=== PATIENT | female | born 1985 | race Caucasian/White ===

== ENCOUNTER → 2018-03-26 09:02 | Outpatient (CLI) | payer OTHER, SELFPAY ==
[2018-03-26 10:00] LABS: Absolute Lymphocyte Count 1.95 X10^3/ul (0.83-4.51); Absolute Neutrophil Count 2.3 X10^3/uL (2.0-7.7); Basophil# 0.03 X10^3/uL; Basophil% 0.6 % (0-1); Eosinophil# 0.08 X10^3/uL; Eosinophils% 1.6 % (0-5); Hematocrit 38.7 % (37-47); Lymphocyte # 1.95 X10^3/ul (4.0); Mean Corp Hgb Conc 33.6 g/gl (32-36); Mean Corpuscular Hgb 29.3 pg (27.0-32.0); Mean Corpuscular Volume 87.4 fL (81-99); Mean Platelet Vol. 9.4 fl (6.2-12.0); Monocyte# 0.61 X10^3/uL; Monocyte% 12.2 % (0-10); Neutrophil # 2.33 X10^3/uL (2.7-7.7); Neutrophil % 46.6 % (47-70); Platelet Count 280 K/mm3 (150-450); RBC Distribution Width CV 12.5 % (11.6-14.6); RBC Distribution Width SD 39.6 fl (35.1-43.9); Red Blood Count 4.43 M/mm3 (4.2-5.4)
[2018-03-26 10:02] LABS: POSITIVE COUNT NO; POSITIVE DIFFERENTIAL NO; POSITIVE MORPHOLOGY NO
[2018-03-26 10:55] LABS: ALB/GLOB Ratio 0.9 RATIO (0.9-2.4); AST(SGOT) 13 U/L (15-37); Alanine Aminotransfer ALT/SGPT 19 U/L (13-56); Albumin, Serum 3.4 g/dL (3.2-5.0); Alkaline Phosphatase 40 U/L (45-117); Anion Gap 10 (5-15); BUN 13 mg/dL (7-18); BUN/Creat Ratio 14.5 RATIO (10-20); Calcium,Total 8.6 mg/dL (8.5-10.1); Chloride 109 mmol/L (98-107); EST Glomerular Filtration Rate 78 mL/min (>60); Est Glom Filt Rate - Afr Amer 95 mL/min (>60); Ferritin 7 ng/mL (8-252); Free T3 2.2 pg/mL (2.18-3.98); Globulin 3.7 g/dL (2.2-4.2); Glucose 86 mg/dL (74-106); Potassium 3.7 mmol/L (3.5-5.1); Protein, Total 7.1 g/dL (6.4-8.2); Sodium Level 141 mmol/L (136-145); T4 Free Direct 1.16 ng/dL (0.76-1.46); Thyroid Stim Hormone (TSH) 4.78 uIU/mL (0.358-3.74)
[2018-03-29 16:10] LABS: Endomysial Antibody IgA Negative (Negative); Immunoglobulin A 130 mg/dL (87-352)
[2018-03-30 08:46] LABS: Immunoglobulin E 8 IU/mL (0-100); t-Transglutaminase IgA <2 U/mL (0-3)
== END ==
PROVIDERS: Family Provider Family Medicine; PCP Family Medicine; Visit Provider Family Medicine
DX: E03.9 Hypothyroidism, unspecified (principal); R51 Headache; R10.13 Epigastric pain
CPT/HCPCS: 36415; 80053; 82728; 82784; 82785; 83516; 84439; 84443; 84481; 85025; 86255

== ENCOUNTER → 2019-02-09 | Outpatient (CLI) | payer OTHER, SELFPAY ==
[2019-02-09 18:12] LABS: Ferritin 55 ng/mL (8-252); Free T3 2.9 pg/mL (2.18-3.98); T4 Free Direct 1.24 ng/dL (0.76-1.46); Thyroid Stim Hormone (TSH) 1.14 uIU/mL (0.358-3.74)
== END | disposition home or self-care (01) ==
LOC: MFPLAB 16:44
PROVIDERS: Family Provider Family Medicine; PCP Family Medicine; Visit Provider Family Medicine
DX: E61.1 Iron deficiency (principal); E03.9 Hypothyroidism, unspecified
CPT/HCPCS: 36415; 82728; 84439; 84443; 84481

== ENCOUNTER 2019-03-02 05:19 | Observation (INO) | payer OTHER, SELFPAY ==
[2019-03-02] VITALS (13 sets, daily range): BP systolic 96–155; BP diastolic 64–93; PULSE 53–91; RESP 16–18; TEMP 36.4–37.1; O2SAT 96–100; BMI 22.0
--- NOTE | 2019-03-02 05:35 | CT_ITS ---
STUDY: CT ABDOMEN AND PELVIS WITHOUT CONTRAST REASON FOR EXAM: Female, 33 years old. Left-sided abdominal pain radiating into back, nausea, vomiting and elevated WBC. History of hypothyroid. RADIATION DOSAGE (If Supplied By Facility): CTDIvol = ( 7.15 ) mGy, DLP = ( 352.02 ) mGycm TECHNIQUE: Transaxial 2.5 mm images were obtained from the dome of the diaphragm to the symphysis pubis without oral contrast, and without intravenous contrast. Sagittal and coronal images were reconstructed. Individualized dose optimization techniques were used for this CT. COMPARISON: None. FINDINGS: The visualized lung bases are unremarkable. The visualized portions of the heart are within normal limits. Normal liver. Normal gallbladder and extrahepatic biliary system. Normal spleen. Normal pancreas. Normal bilateral adrenal glands. Normal right kidney. Normal left kidney. Megaly uro Normal visualized stomach. Normal small intestine. There is fecal stasis. Normal colon. The appendix is visualized and is distended with low attenuation, there is minimally indistinct contour and mild mesenteric fat stranding. There is no wall thickening. The appendix lumen measures 1 cm. The appendix courses retrocecally inferior to the right anterior lower abdomen superior to the inguinal fossa. Normal abdominal aorta. Normal inferior vena cava. Normal retroperitoneum. Normal urinary bladder. Normal visualized retroverted uterus and right ovary. Left ovary contains a large 4.1 x 3.2 x 3.5 cm cyst measuring 8 Hounsfield units. Normal abdominal wall. Normal osseous structures. CT/Abdomen/Pelvis without Cont IMPRESSION: Dilated appendix with minimal adjacent stranding. This may be an acute on chronic inflammation. Underlying small or early mucocele is not excluded. There is no significant wall thickening. Left ovarian cyst. There is no abscess, collection, perforation or obstruction. Fecal stasis. These findings were discussed on the telephone with Dr. Fairchild at 645 hrs. EST on 03/02/2019. Electronically Signed: Ludmila Irwin MD at 6:49 EDT , Service support ,
[2019-03-02] MEDS: Ketorolac 30 MG/ML Syringe IV (05:43)
[2019-03-02] MEDS: Morphine 4 MG/ML Syringe IV ×3 (05:44→12:14)
[2019-03-02] MEDS: Ondansetron 4 MG/2 ML Vial IV (05:44)
[2019-03-02] MEDS: 0.9% Normal Saline 1,000 ML 150 ML IV (05:45)
[2019-03-02 06:02] LABS: Absolute Lymphocyte Count 1.06 X10^3/ul (0.83-4.51); Absolute Neutrophil Count 14.3 X10^3/uL (2.0-7.7); Basophil# 0.02 X10^3/uL; Basophil% 0.1 % (0-1); Eosinophil# 0.01 X10^3/uL; Eosinophils% 0.1 % (0-5); Hematocrit 42.9 % (37-47); Hemoglobin 14.7 g/dl (12.0-15.0); Lymphocyte # 1.06 X10^3/ul (4.0); Lymphocyte % 6.3 % (19-41); Mean Corp Hgb Conc 34.3 g/gl (32-36); Mean Corpuscular Hgb 29.5 pg (27.0-32.0); Mean Corpuscular Volume 86.1 fL (81-99); Mean Platelet Vol. 9.4 fl (6.2-12.0); Monocyte# 1.37 X10^3/uL; Monocyte% 8.2 % (0-10); Neutrophil # 14.29 X10^3/uL (2.7-7.7); Platelet Count 287 K/mm3 (150-450); RBC Distribution Width CV 12.4 % (11.6-14.6); RBC Distribution Width SD 38.3 fl (35.1-43.9); Red Blood Count 4.98 M/mm3 (4.2-5.4); White Blood Count 16.8 K/mm3 (4.4-11.0)
[2019-03-02 06:05] LABS: POSITIVE COUNT NO; POSITIVE DIFFERENTIAL NO; POSITIVE MORPHOLOGY NO
[2019-03-02 06:14] LABS: Internal QC Validated? YES +Cl - CLEAR BKGD; Pregnancy, Serum, hCG Quali. NEGATIVE Negative
[2019-03-02 06:16] LABS: Anion Gap 13 (5-15); BUN 16 mg/dL (7-18); BUN/Creat Ratio 17.7 RATIO (10-20); Calcium,Total 9.4 mg/dL (8.5-10.1); Chloride 105 mmol/L (98-107); EST Glomerular Filtration Rate 77 mL/min (>60); Est Glom Filt Rate - Afr Amer 93 mL/min (>60); Estimated Creatinine Clearance 84.79 ml/min; Glucose 135 mg/dL (74-106); Potassium 3.5 mmol/L (3.5-5.1); Sodium Level 138 mmol/L (136-145)
[2019-03-02 06:56] LABS: Color, Urine Yellow (Yellow); Glucose, Dipstick Normal (Normal); Leukocyte Esterase-Dipstick 25 /ul (Negative); Nitrite-Dipstick Negative (Negative); Occult Blood-Urine 50 /ul (Negative); Protein-Dipstick 15 mg/dl (Negative); Urine Bilirubin Dipstick Negative (Negative); Urine Clarity Clear (Clear); Urine Urobilinogen Normal (Normal)
[2019-03-02 06:59] LABS: Ketone-Dipstick 150 mg/dl (Negative)
[2019-03-02 07:01] LABS: Bacteria RARE /hpf (None Seen); Red Blood Cells-Urine 0-5 SEEN /hpf (0-5); Squamous Epithelial Cells - UA 0-5 SEEN /hpf (5-10); White Blood Cells 0-5 SEEN /hpf (0-5)
[2019-03-02 07:02] LABS: Mucous, Urine 1+ /hpf (<or=2+)
--- NOTE | 2019-03-02 07:07 | US_ITS ---
STUDY: ULTRASOUND OF THE FEMALE PELVIS - COMPLETE REASON FOR EXAM: Female, 33 years old. Pelvic pain. LMP: February 15, 2019. TECHNIQUE: Transvaginal TECHNICAL QUALITY: Adequate. COMPARISON: Comparison is made with prior CT scan of the abdomen done earlier today. FINDINGS: The uterus is retroverted and is in a midline position. The uterus measures 7.3 cm x 4.3 cm x 3.5 cm. There is a Nabothian cyst of the cervix. The endometrium measures 5.4 mm in thickness, and is hyperechoic. There is no demonstrated endometrial mass. There is no demonstrated myometrial mass. I.U.D. - The patient does not have an I.U.D. The right ovary is visualized. The right ovary measures 2.6 cm x 1.6 cm x 1.9 cm. There is no right ovarian cyst or ovarian mass. There is no visualized right adnexal mass or complex lesion. There is normal arterial and normal venous vascularity. The left ovary is visualized. The left ovary measures 5.0 cm x 5.4 cm x 3.8 cm. There is a 4.3 cm x 4.1 cm x 3.7 cm simple cyst in the left ovary. There is no visualized left adnexal mass or complex lesion. There is normal arterial and normal venous vascularity. There is no fluid in the cul-de-sac. Polycystic ovary disease: No. US/Transvaginal Non- IMPRESSION: 4.3 cm x 4.1 cm x 3.7 cm cyst in the left ovary. Electronically Signed: Lance Norwood, at 9:00 EDT , Service support ,
--- NOTE | 2019-03-02 07:19 | ED.DCSUM_ITS ---
- ER Visit Summary Date of Service: 03/02/19 Chief Complaint: Abdominal pain History of Present Illness: The patient is a 33 F with abdominal pain that started at 10 PM last night. She points to bilateral lower quadrants and states that wraps around to both flank areas. Patient states the pain is sharp and cramping. She has had nausea and vomiting. She denies urinary symptoms. She has no history of ovarian cyst. She has had no prior abdominal surgeries. Last menstrual cycle was 3 weeks ago. Physical Examination: Vital signs gross unremarkable. Patient sitting upright in bed. She is very uncomfortable and has difficulty sitting still. Heart is regular rate and rhythm. Lung sounds are clear. Abdomen is soft with tenderness across the lower abdomen, both right and left quadrants. There is no guarding or rebound. Back examination does reveal tenderness on the CVA region bilaterally. Test Results: CBC was a white count of 16.8 with 85% neutrophils. Chemistry studies unremarkable. Urinalysis revealed 150 ketones with no sign of infection. test negative. CT flank was obtained that shows a dilated appendix with mild adjacent stranding. No wall thickening is noted. There is a 4 cm left ovarian cyst. Emergency Department Course and Treatment: Patient was given Toradol, morphine, Zofran, and IV fluids. On repeat evaluation she is resting more comfortably. I spoke with Dr. Girard, on-call for surgery. She reviewed the patient's images. Patient is given Zosyn and they will check surgery scheduled to see when they will take her to the OR today. 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 Ultrasound is currently ordered and will be signed out to oncoming physician. I spoke with Dr. Vann, and updated her on the patient's current condition. Dr. Vann will be called with the ultrasound report. Treatment Plan: [] Disposition: Admit Impression: 1. Appendicitis 2. Left ovarian cyst This note was generated with [employer]com[employer] software. It may contain incorrect words, spelling, and punctuation that were not noted in review of the chart prior to signing ED Disposition - Plan for ED Patient: Referrals: Orlando Fournier MD [Primary Care Provider] -
--- NOTE | 2019-03-02 09:16 | PCM.HP.STD ---
Problem List (1) Acute appendicitis Status: Acute History of Present Illness Date of Admission: 03/02/19 Chief Complaint: Acute appendicitis The patient is a 33 year old F who presented to the ED with 1 day history of abdominal pain. Patient noted the pain started last night around 10 pm bilateral lower quadrants. Patient notes she was doing house work outside all day yesterday and thought she over did it. She also noted a backache last night and bloating. She took anti-gas medication which did not help. Patient also was given ibuprofen for the pain which did not help to alleviate the pain. Patient stated the pain continued to get worse in the right lower quadrant which brought her to the ED. Patient states she was also nauseated and had 4 episodes of vomiting. She also noted chills however no fever. Patient also noted she had lack of appetite starting Thursday and wasn't feeling well. She thought maybe she was coming down with the flu. Patient noted yesterday her appetite improved. She denies previous abdominal surgeries. She notes extraction of wisdom teeth. She denies previous complications with anesthesia. She denies previous myocardial infraction, stroke and blood clots. She does have a permanent dental implant. 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 Denies: Fever HEENT: Denies: Head Aches, Sinus Congestion, Sinus Drainage Cardiovascular: Denies: Chest Pain, Palpitations Respiratory: Denies: Cough, Shortness of breath at rest, Sputum production Gastrointestinal: Reports: Abdominal Pain, Nausea, Vomiting. Denies: Constipation, Diarrhea Genitourinary: Denies: Dysuria Musculoskeletal: Denies: Joint Pain, Joint Tenderness Skin: Denies: Rash, Wounds Neurological: Denies: Numbness, Tingling, Focal weakness Psychiatric: Denies: Anxiety, Depression, Homicidal Ideations, Suicidal Ideations Hematologic/ Lymphatic: Denies: Easy Bruising, Easy Bleeding VTE Information - Inpt Only VTE Present on Admission: Yes VTE Mechan Device Prophylaxis: SCD's Patient Problems: Active and Suspected Problems Acute appendicitis (Acute) - Physical Exam General: Alert, Oriented x3, Cooperative HEENT: Atraumatic, PERRLA, EOMI, Normocephalic Neck: Supple, No JVD, Negative Carotid Bruits Lungs: Clear to auscultation, Normal air movement Cardiovascular: Regular rate, No murmurs Abdomen: Bowel Sounds Present, Soft, Non-Distended, Guarding, Tender - More tender in the right lower quadrant. Slightly tender in the left lower quadrant. Extremities: No edema, Capillary Refill Less than 3 Seconds Skin: No rashes, No breakdown Musculoskeletal: No Tenderness to Palpation of Joints or Extremities Neurological: Neuro grossly intact Psych/Mental Status: Normal Affect, Appropriate Vital Signs Temp Pulse Resp BP Pulse Ox 97.6 F L 75 18 155/93 H 100 03/02/19 05:21 03/02/19 05:21 03/02/19 07:19 03/02/19 05:21 03/02/19 05:21 Oxygen Delivery Method Room Air Weight: 136 lb 7.458 oz Body Mass Index (BMI) 22.0 Laboratory Tests Past 24 Hrs 03/02/19 03/02/19 03/02/19 05:30 05:30 05:30 WBC 16.8 H RBC 4.98 Hgb 14.7 Hct 42.9 MCV 86.1 MCH 29.5 MCHC 34.3 RDW 12.4 RDW Differential 38.3 Plt Count 287 MPV 9.4 Immature Gran % (Auto) 0.300 Neut % (Auto) 85.0 H Lymph % (Auto) 6.3 L Bond % (Auto) 8.2 Eos % (Auto) 0.1 Baso % (Auto) 0.1 Absolute Neuts (auto) 14.3 H Absolute Lymphs (auto) 1.06 Total Counted Not Reportable Sodium 138 Potassium 3.5 Chloride 105 Carbon Dioxide 20.0 L Anion Gap 13 BUN 16 Creatinine 0.90 Estim Creat Clear Calc 84.79 Est GFR (MDRD) Af Amer 93 Est GFR (MDRD) Non-Af 77 BUN/Creatinine Ratio 17.7 Glucose 135 H Calcium 9.4 Serum , Qual NEGATIVE Urine Color Urine Clarity Urine pH Ur Specific Lawrence Urine Protein Urine Glucose (UA) Urine Ketones Urine Occult Blood Urine Nitrite Urine Bilirubin Urine Urobilinogen Ur Leukocyte Esterase Urine RBC Urine WBC Ur Squamous Epith Cells Urine Bacteria Urine Mucus 03/02/19 06:45 WBC RBC Hgb Hct MCV MCH MCHC RDW RDW Differential Plt Count MPV Immature Gran % (Auto) Neut % (Auto) Lymph % (Auto) Bond % (Auto) Eos % (Auto) Baso % (Auto) Absolute Neuts (auto) Absolute Lymphs (auto) Total Counted Sodium Potassium Chloride Carbon Dioxide Anion Gap BUN Creatinine Estim Creat Clear Calc Est GFR (MDRD) Af Amer Est GFR (MDRD) Non-Af BUN/Creatinine Ratio Glucose Calcium Serum , Qual Urine Color Yellow Urine Clarity Clear Urine pH 5.0 Ur Specific Lawrence 1.030 Urine Protein 15 H Urine Glucose (UA) Normal Urine Ketones 150 H Urine Occult Blood 50 H Urine Nitrite Negative Urine Bilirubin Negative Urine Urobilinogen Normal Ur Leukocyte Esterase 25 H Urine RBC 0-5 SEEN Urine WBC 0-5 SEEN Ur Squamous Epith Cells 0-5 SEEN Urine Bacteria RARE Urine Mucus 1+ Assessment/Plan All Active Problems Acute appendicitis (Acute) I am seeing this patient in conjunction with Dr. Girard. Impression: Acute appendicitis. Left ovarian cyst. Plan: Patient was discussed with Dr. Girard. Dr. Girard will plan to perform a laparoscopic appendectomy. Procedure details, risks and benefits have been explained. Patient and her have had the opportunity to ask and have questions answered. Patient verbally understands and agrees to proceed with the proposed procedure. Keep patient NPO. Will proceed with surgery approximately 1400 pm. Thank you for allowing us to participate in this patient's care. Code Visit Office Visits / Consults: [id number] IP Consult L3
--- NOTE | 2019-03-02 12:32 | PCM.HP.OB ---
- Problem List (1) Lower abdominal pain Status: Acute (2) Acute appendicitis Status: Acute History Date of Admission: 03/02/19 History of this : This is a 33 year-old, who is admitted with acute appendicitis and a left ovarian cyst. She has generally not been feeling well with decreased appetite. Began having bilateral lower abd pain worse in RLQ. Associated symptoms: nausea, vomiting, chills. She denies h/o ovarian cysts. Has had 1 . Is currently on control pills. Medical History: Medical History (Last Updated 03/02/19 @ 12:35 by Lara Vann DO) Hypothyroidism E03.9 Allergies No Known Allergies Allergy (Verified 03/02/19 05:23) Home Medications: Home Medications Ethinyl Estradiol/Drospirenone [Gianvi 3 mg-0.02 mg Tablet] 1 each PO DAILY 03/02/19 Levothyroxine Sodium [Synthroid] 112 mcg PO DAILY 03/02/19 Smoking Status: Never smoker History Past Pregnancies: Past Pregnancies Delivery Date Name GA/Weeks Outcome Route Weight Gender Labor Length Anesthesia Delivery Location Provider FOB Review of Systems Constitutional: Reports: Chills, Malaise Gastrointestinal: Reports: Abdominal Pain, Nausea, Vomiting Gynecological: Denies: Excessively long or heavy periods, Vaginal bleeding Physical Exam Vitals: Vital Signs Temp Pulse Resp BP Pulse Ox 98.6 F 53 L 18 96/74 100 03/02/19 12:24 03/02/19 12:24 03/02/19 12:24 03/02/19 12:24 03/02/19 12:24 General: Alert, No apparent distress HEENT: Atraumatic Lungs: - - No increased resp effort Abdomen: Non-Distended Extremities:: No edema Neurological: Neuro grossly intact Assessment/Plan All Active Problems Acute appendicitis (Acute) Lower abdominal pain (Acute) This is a 33 year-old, admitted with acute appendicitis and an incidental finding of a left ovarian cyst. - Pelvic US reviewed and left ovarian cyst is ~4cm in size and simple appearing. Based on images and pt's hx this does not appear to be a TOA. Discussed with pt this cyst is benign appearing, and is likely to resolve on it's own. Would not recommend cyst removal at the time of her appendectomy. Did discuss that it is possible that the cyst grows in size over time, and it is still possible that she could need surgery in the future to remove the cyst but that this is unlikely given the cyst size and characteristics. Discussed signs/symptoms of cyst rupture or torsion. All questions answered. Pt is agreeable to follow up as an outpatient for the cyst, and is agreeable to not remove the cyst at the time of her appendectomy. RN will call pt next week to assist with outpatient follow up. Discussed pt with Dr. Ocampo as well for a second opinion.
--- NOTE | 2019-03-02 13:30 | APP_PTH ---
PATIENT: OPAL FOURNIER LOC: MS2 U#:[id number] AGE/SX: 33/F [place] [facility] [place]: Dr. Natalya Girard MD : 1985 BED: 1 DIS: 03/03/2019 SPEC #: [id number] RECD: 03/02/19 16:45 STATUS: ISAAC REQ #: [id number] JIM: 03/02/19 13:[address]: Natalya Girard DEPT: SURGICAL PATHOLOGY RECD BY: Enio Gregory ENTERED: 03/03/19 10:59 SP TYPE: APPENDIX OTHR DR: Dr. Orlando Fournier MD Tissues: Appendix, NOS Procedures: Surgery Specimen Level III HEADER OPERATION: Laparoscopic appendectomy PRE-OP DIAGNOSIS: Acute appendicitis TISSUE SUBMITTED: Appendix MICROSCOPIC DIAGNOSIS Appendix: Acute appendicitis and periappendicitis. SJ:enedelia 03/04/19 MICROSCOPIC DESCRIPTION Slides are reviewed. GROSS DESCRIPTION Received is one container labeled with the patient's name and designated appendix. The specimen consists of an appendix measuring 7 cm in length and up to 1.5 cm in diameter. The serosal surface is congested. No obvious perforation is identified. The attached periappendiceal adipose tissue measures up to 1 cm in width. The lumen contains purulent fecal material. No fecalith is identified. Car Driver sections are submitted in one cassette. / SJ:enedelia 03/03/19 TC:2 CPT: 26294
[2019-03-02] MEDS: Bupiv/Epi 0.5% Mpf 30 ML Vial (15:27)
--- NOTE | 2019-03-02 15:33 | PCM.OPRPT ---
Report of Operation Date of Procedure: 03/02/19 Pre-Operative Diagnosis: Acute appendicitis, simple left ovarian cyst Post-Operative Diagnosis: Same Surgery/Procedure Performed:: Laparoscopic appendectomy Type of Anesthesia:: General/Supplemental Anesthesiologist: Lang Cotto Special Medications: Zosyn 3.375 g IV x1 patient previously also got Zosyn in the ER for acute appendicitis Specimen's removed: Appendix Estimated Blood Loss (mL): 10 cc Fluids Replaced: 800 Description of Procedure: Indications: 33-year-old female presented to the ER with new bilateral lower quadrant pain last night. On workup she was found to have acute appendicitis on CT and a leukocytosis of 16. Patient was started on antibiotics in the ER for acute appendicitis-Zosyn 4.5 g IV x1 Description of the procedure: The patient was placed on operating table in supine position. General anesthesia was induced. A timeout was completed verifying correct patient, procedure, position and special equipment prior to beginning procedure. A Montgomery catheter was placed. Abdomen was prepped and draped in usual sterile fashion. Incision was made in the natural skin line below the umbilicus with a 15 blade scalpel. The fascia was elevated and incised. Entry into the peritoneum was confirmed visually and no bowel was noted in the vicinity of the incision. The Estrada trocar was placed under direct vision. Abdomen insufflated with a pressure of 12-15 mmHg. Patient tolerated insertion well. The scope was inserted and the abdomen inspected. No injuries from initial trocar placement were noted. Minimal amount of fluid was seen in the right lower quadrant. An direct visualization 2 -5 mm trocars were placed one above the symphysis pubis and below the hairline and one in the left lower quadrant lateral to the rectus muscle. Care is taken to avoid injury to the bladder and inferior epigastric vessels. The table was placed in Trendelenburg position with the right side elevated. The appendix was grasped with atraumatic grasper and elevated. It was noted to be inflamed. A window was developed in the mesoappendix at the point between the base of the appendix and the cecum. An endoscopic 45 mm linear cutting stapler blue load was then used to divide and staple the base of the appendix. There was a little bit of oozing at the staple line 5 mm clips were placed. Hemostasis was achieved. Pain seal was used to divide the mesoappendix. The appendix was withdrawn into the Estrada trocar after being placed endoscopically retrieval bag. Appendix was sent to pathology. The appendiceal stump was then irrigated and hemostasis was assured. Fluid was suctioned left and right ovary were seen and pictures were taken, no signs of any ovarian torsion. Secondary trochars were removed under direct visualization. No bleeding was noted trocar sites. The laparoscope withdrawn and the umbilical trocar removed. The abdomen was allowed to collapse. Local anesthesia of 15 mL of 0.5% Marcaine was used at the incision sites. The umbilical trocar site was closed with the [id number] 0 Vicryl suture. The skin was closed up to clear sutures of 4-0 Monocryl and Steri-Strips. The patient was extubated. The patient tolerated the procedure well and was taken to the postanesthesia care unit in satisfactory condition. - Complications None
[2019-03-02] MEDS: Ibuprofen 200 MG Tablet PO (22:00)
[2019-03-03 04:00] VITALS: BP 92/60; PULSE 80; RESP 16; TEMP 36.6; O2SAT 97
[2019-03-03] MEDS: Ibuprofen 200 MG Tablet PO (04:13)
[2019-03-03 04:18] VITALS: BP 92/48
[2019-03-03] MEDS: Levothyroxine 112 MCG Tablet PO (06:34)
[2019-03-03] MEDS: HYDROcodone Bitartrate/Apap 5/325 Tablet PO (07:51)
--- NOTE | 2019-03-03 08:26 | PCM.DC.APPY ---
Discharge Diet: Light diet - advance as tolerated Discharge Activity: May not drive while taking narcotic pain medications. May shower in (days): 0 - Okay to shower tonight Ice area for (Minutes): 20 - PRN Lifting Restrictions: No lifting greater than 20 lbs x 3 to 4 wks, no strenuous exercise for 6 wk Call your doctor if your incision/area has: Continuous Slow Oozing, Sudden Increased Bleeding, Increased Pain/ Swelling, Increased Redness, Foul Smelling Discharge, Swelling at the incision site Call your doctor if you observe: Fever of 101 or Higher Remove Dressing in (days):: 1 - Okay to remove op sites tonight, Steri-Strips stay on until they fall off or okay to remove in 10 days Additional Instructions: Okay to take ibuprofen 400-600 mg PO q6hr PRN along with the Sunflower. Avoid Tylenol since there is already Tylenol in the Sunflower. Take all pain meds with food. Sunflower can cause constipation recommend taking daily stool softener (i.e. Colace/docusate) while taking the pain meds. Recommend starting some MiraLAX tonight 1 dose and if no bowel movement tomorrow may take a couple doses. If still no bowel movement the following day recommend taking magnesium citrate half the bottle and waiting 4-6 hours if still no results take the other half the bottle. Medications to take at Discharge Ethinyl Estradiol/Drospirenone [Gianvi 3 mg-0.02 mg Tablet] 1 each PO DAILY 03/02/19 Hydrocodone Bitart/Apap 5-325 [Sunflower 5MG-325MG] 1 - 2 tablet PO Q6H PRN PRN 4 Days #25 tablet 03/02/19 Levothyroxine Sodium [Synthroid] 112 mcg PO DAILY 03/02/19 Allergies/Adverse Reactions: Allergies No Known Allergies Allergy (Verified 03/02/19 05:23) The following prescriptions were given: Hydrocodone Bitart/Apap 5-325 [Sunflower 5MG-325MG] 1 - 2 tablet PO Q6H PRN PRN 4 Days #25 tablet PRN Reason: Pain Primary Care Physician: Orlando Fournier MD [Primary Care Provider] - Test Results: Test results from this visit will be discussed in further detail at your follow-up appointment, if applicable. Please Follow Up With: Natalya Girard MD - after 5:00PM/ on the weekends call [phone] with any concerns When: Call the office for follow-up appointment in 2 weeks [phone] Proposed Discharge Date: 03/03/19
--- NOTE | 2019-03-03 08:29 | DCINST_ITS ---
Discharge Diet: Light diet - advance as tolerated Discharge Activity: May not drive while taking narcotic pain medications. May shower in (days): 0 - Okay to shower tonight Ice area for (Minutes): 20 - PRN Lifting Restrictions: No lifting greater than 20 lbs x 3 to 4 wks, no strenuous exercise for 6 wk Call your doctor if your incision/area has: Continuous Slow Oozing, Sudden Increased Bleeding, Increased Pain/ Swelling, Increased Redness, Foul Smelling Discharge, Swelling at the incision site Call your doctor if you observe: Fever of 101 or Higher Remove Dressing in (days):: 1 - Okay to remove op sites tonight, Steri-Strips stay on until they fall off or okay to remove in 10 days Additional Instructions: Okay to take ibuprofen 400-600 mg PO q6hr PRN along with the Barlow. Avoid Tylenol since there is already Tylenol in the Barlow. Take all pain meds with food. Barlow can cause constipation recommend taking daily stool softener (i.e. Colace/docusate) while taking the pain meds. Recommend starting some MiraLAX tonight 1 dose and if no bowel movement tomorrow may take a couple doses. If still no bowel movement the following day recommend taking magnesium citrate half the bottle and waiting 4-6 hours if still no results take the other half the bottle. Medications to take at Discharge Ethinyl Estradiol/Drospirenone [Gianvi 3 mg-0.02 mg Tablet] 1 each PO DAILY 03/02/19 Hydrocodone Bitart/Apap 5-325 [Barlow 5MG-325MG] 1 - 2 tablet PO Q6H PRN PRN 4 Days #25 tablet 03/02/19 Levothyroxine Sodium [Synthroid] 112 mcg PO DAILY 03/02/19 Allergies/Adverse Reactions: Allergies No Known Allergies Allergy (Verified 03/02/19 05:23) The following prescriptions were given: Hydrocodone Bitart/Apap 5-325 [Barlow 5MG-325MG] 1 - 2 tablet PO Q6H PRN PRN 4 Days #25 tablet PRN Reason: Pain Primary Care Physician: Orlando Fournier MD [Primary Care Provider] - Test Results: Test results from this visit will be discussed in further detail at your follow- up appointment, if applicable. Please Follow Up With: Natalya Girard MD - after 5:00PM/ on the weekends call [phone] with any concerns When: Call the office for follow-up appointment in 2 weeks [phone] Proposed Discharge Date: 03/03/19
--- NOTE | 2019-03-03 08:30 | PN.SURG_ITS ---
Patient Problems: Active and Suspected Problems (Last Updated 03/02/19 @ 12:35 by Lara Vann DO) Acute appendicitis (Acute) Lower abdominal pain (Acute) Subjective: Patient states her previous lower abdominal pain is gone after surgery. She has some soreness at incisions. Patient has tolerated regular diet this morning. Has been ambulating. - Physical Exam General: Alert, Oriented x3, Cooperative, No apparent distress HEENT: Atraumatic Lungs: Normal air movement Cardiovascular: Regular rate Abdomen: Soft, Non-Distended, Tender - Near incisions, clean dry and intact, no peritoneal signs Extremities: No clubbing, No cyanosis, No edema Vital Signs Temp Pulse Resp BP Pulse Ox 97.9 F 80 16 92/48 L 97 03/03/19 04:00 03/03/19 04:00 03/03/19 04:00 03/03/19 04:18 03/03/19 04:00 Oxygen Delivery Method Room Air Weight: 136 lb 7.458 oz Body Mass Index (BMI) 22.0 Intake and Output for Last 24 Hours 03/01/19 03/02/19 03/03/19 23:59 23:59 23:59 Intake Total 2150 / 2150 1622 / 1622 Output Total 150 / 150 Balance 1999 1622 / 1622 Medical Necessity - Tobacco Use Smoking Status: Never smoker Assessment/Plan All Active Problems (Last Updated 03/02/19 @ 12:35 by Lara Vann DO) Acute appendicitis (Acute) Lower abdominal pain (Acute) 33-year-old female status post lap scopic appendectomy postop day 1 1. Patient tolerating regular diet, ambulating, pain controlled okay to be DC'd home. Natalya Girard M.D. Pager: [phone] [facility] [address] [place] [address], [facility], [address] [place] [address] Office: [phone]
[2019-03-03 09:48] VITALS: BP 102/60; PULSE 77; RESP 16; TEMP 36.4; O2SAT 99
== END 2019-03-03 10:00 | disposition home or self-care (01) ==
LOC: ED 06:09 → PCU 07:21 → MS2 08:49
PROVIDERS: Admitting Provider Surgery; Emergency Provider Emergency Medicine; Family Provider Family Medicine; PCP Family Medicine; Visit Provider Surgery
PROC: 0DTJ4ZZ Resection of Appendix, Percutaneous Endoscopic Approach (ICD-10-PCS; CPT 44970; principal; 2019-03-02 13:15)
DX: K35.80 Unspecified acute appendicitis (principal); N83.292 Other ovarian cyst, left side; E03.9 Hypothyroidism, unspecified; Z79.899 Other long term (current) drug therapy
CPT/HCPCS: 44970; 36415; 74176; 76830; 80048; 81001; 84703; 85025; 88304; 96361; 96365; 96375; 96376; 99218; 99285; J7030; J7050; J7120; A4216; C1760; G0378; J2405

== ENCOUNTER → 2020-09-04 07:14 | Outpatient (CLI) | payer OTHER, SELFPAY ==
[2019-03-16 13:02] VITALS: BMI 22.0
[2020-09-04 10:03] LABS: Hemoglobin 13.3 g/dL (12.0-15.0)
[2020-09-04 10:29] LABS: Cholesterol 234 mg/dL (200); Creatinine, Serum 0.93 mg/dL (0.55-1.02); EST Glomerular Filtration Rate 74 mL/min (>60); Est Glom Filt Rate - Afr Amer 90 mL/min (>60); High Density Lipoprotein 93 mg/dL; T4 Free Direct 1.05 ng/dL (0.76-1.46); Thyroid Stim Hormone (TSH) 7.45 uIU/mL (0.358-3.74); Triglycerides 82 mg/dL; Very Low Density Lipoprotein 16 mg/dL (5-40)
== END ==
PROVIDERS: PCP Family Medicine; Referring Provider Family Medicine; Visit Provider Family Medicine
DX: E03.9 Hypothyroidism, unspecified (principal); Z13.220 Encounter for screening for lipoid disorders
CPT/HCPCS: 36415; 80061; 82565; 84439; 84443; 85018

== ENCOUNTER → 2021-04-09 14:27 | Outpatient (CLI) | payer OTHER, SELFPAY ==
[2019-03-16 13:02] VITALS: BMI 22.0
[2021-04-09 17:51] LABS: Absolute Lymphocyte Count 2.01 X10^3/uL (0.83-4.51); Absolute Neutrophil Count 2.4 X10^3/uL (2.0-7.7); Basophil# 0.05 X10^3/uL; Eosinophil# 0.02 X10^3/uL; Eosinophils% 0.4 % (0-5); Hemoglobin 13.1 g/dL (12.0-15.0); Lymphocyte # 2.01 X10^3/ul (0.83-4.51); Lymphocyte % 38.5 % (19-41); Mean Corp Hgb Conc 32.8 g/dL (32-36); Mean Corpuscular Hgb 29.6 pg (27.0-32.0); Mean Corpuscular Volume 90.3 fL (81-99); Mean Platelet Vol. 9.6 fl (6.2-12.0); Monocyte# 0.68 X10^3/uL; NRBC Flagged by Analyzer 0 % (0-5); Neutrophil # 2.44 X10^3/uL (2.7-7.7); Neutrophil % 46.7 % (47-70); Platelet Count 297 K/mm3 (150-450); RBC Distribution Width CV 12.4 % (11.6-14.6); RBC Distribution Width SD 41.3 fl (35.1-43.9); Red Blood Count 4.43 M/mm3 (4.2-5.4); White Blood Count 5.2 K/mm3 (4.4-11.0)
[2021-04-09 18:04] LABS: Vitamin B12 239 pg/mL (211-911)
[2021-04-09 18:06] LABS: Erythrocyte Sedimentation Rate 4 mm/hr (0-30)
[2021-04-09 18:44] LABS: AST(SGOT) 19 U/L (15-37); Alanine Aminotransfer ALT/SGPT 32 U/L (13-56); Albumin, Serum 3.7 g/dL (3.2-5.0); Alkaline Phosphatase 51 U/L (45-117); Anion Gap 10 (5-15); BUN 19 mg/dL (7-18); BUN/Creat Ratio 21.6 RATIO (10-20); CRP < 2.90 mg/L (0.0-3.0); Calcium,Total 8.7 mg/dL (8.5-10.1); Chloride 105 mmol/L (98-107); Creatinine, Serum 0.88 mg/dL (0.55-1.02); EST Glomerular Filtration Rate 79 mL/min (>60); Est Glom Filt Rate - Afr Amer 95 mL/min (>60); Ferritin 65 ng/mL (8-252); Globulin 3.7 g/dL (2.2-4.2); Glucose 90 mg/dL (74-106); Potassium 3.8 mmol/L (3.5-5.1); Protein, Total 7.4 g/dL (6.4-8.2); Sodium Level 138 mmol/L (136-145); T4 Free Direct 1.33 ng/dL (0.76-1.46); Thyroid Stim Hormone (TSH) 1.45 uIU/mL (0.358-3.74)
[2021-04-12 12:06] LABS: ANTINUCLEAR ANTIBODIES DIRECT Negative (Negative)
== END ==
PROVIDERS: PCP Family Medicine; Visit Provider Family Medicine
DX: E03.9 Hypothyroidism, unspecified (principal); E61.1 Iron deficiency; R53.81 Other malaise
CPT/HCPCS: 36415; 80053; 82607; 82728; 82746; 83921; 84439; 84443; 85025; 85652; 86038; 86140

== ENCOUNTER → 2021-05-06 12:14 | Outpatient (CLI) | payer OTHER, SELFPAY ==
[2019-03-16 13:02] VITALS: BMI 22.0
[2021-05-06 15:35] LABS: Estradiol < 11.0 pg/mL; Follicle Stimulating Hormone 0.7 mIU/mL; Luteinizing Hormone < 0.2 mIU/mL
== END ==
PROVIDERS: PCP Family Medicine; Referring Provider Family Medicine; Visit Provider Family Medicine
DX: R45.86 Emotional lability (principal)
CPT/HCPCS: 36415; 82670; 83001; 83002; 84403

== ENCOUNTER → 2023-07-17 | Outpatient (CLI) | payer OTHER, SELFPAY ==
[2023-07-17 17:40] LABS: Absolute Lymphocyte Count 1.81 X10^3/uL (0.83-4.51); Absolute Neutrophil Count 2.7 X10^3/uL (2.0-7.7); Basophil# 0.05 X10^3/uL; Eosinophil# 0.05 X10^3/uL; Hematocrit 39.8 % (37-47); Hemoglobin 12.8 g/dL (12.0-15.0); Lymphocyte # 1.81 X10^3/ul (0.83-4.51); Lymphocyte % 34.7 % (19-41); Mean Corp Hgb Conc 32.2 g/dL (32-36); Mean Corpuscular Hgb 29.3 pg (27.0-32.0); Mean Corpuscular Volume 91.1 fL (81-99); Mean Platelet Vol. 9.4 fl (6.2-12.0); Monocyte# 0.61 X10^3/uL; Monocyte% 11.7 % (0-10); NRBC Flagged by Analyzer 0 % (0-5); Neutrophil # 2.68 X10^3/uL (2.7-7.7); Neutrophil % 51.4 % (47-70); Platelet Count 341 K/mm3 (150-450); RBC Distribution Width CV 12.3 % (11.6-14.6); RBC Distribution Width SD 40.6 fl (35.1-43.9); Red Blood Count 4.37 M/mm3 (4.2-5.4); White Blood Count 5.2 K/mm3 (4.4-11.0)
[2023-07-17 18:27] LABS: AST(SGOT) 12 U/L (15-37); Alanine Aminotransfer ALT/SGPT 23 U/L (13-56); Albumin, Serum 3.6 g/dL (3.2-5.0); Alkaline Phosphatase 46 U/L (45-117); Anion Gap 1 (5-15); BUN 19 mg/dL (7-18); BUN/Creat Ratio 21.1 RATIO (10-20); Calcium,Total 8.9 mg/dL (8.5-10.1); Chloride 108 mmol/L (98-107); Cholesterol 211 mg/dL (200); EST Glomerular Filtration Rate 75 mL/min (>60); Est Glom Filt Rate - Afr Amer 91 mL/min (>60); Globulin 3.7 g/dL (2.2-4.2); Glucose 91 mg/dL (74-106); High Density Lipoprotein 87 mg/dL; Potassium 3.6 mmol/L (3.5-5.1); Protein, Total 7.3 g/dL (6.4-8.2); Sodium Level 133 mmol/L (136-145); Thyroid Stim Hormone (TSH) 5.41 uIU/mL (0.358-3.74); Triglycerides 62 mg/dL; Very Low Density Lipoprotein 12 mg/dL (5-40)
== END | disposition home or self-care (01) ==
LOC: MTLAB 15:57
PROVIDERS: PCP Family Medicine; Referring Provider Family Medicine; Visit Provider Family Medicine
DX: Z00.00 Encounter for general adult medical examination without abnormal findings (principal); E03.9 Hypothyroidism, unspecified; Z13.220 Encounter for screening for lipoid disorders
CPT/HCPCS: 36415; 80053; 80061; 84439; 84443; 85025

== ENCOUNTER 2024-11-18 14:12 | Emergency (ER) | payer OTHER, SELFPAY ==
[2024-11-18 14:13] VITALS: BP 175/92; PULSE 113; RESP 18; TEMP 36.2; O2SAT 95; BMI 24.8
--- NOTE | 2024-11-18 14:52 | EDS_ITS ---
HPI HPI - GI History of Present Illness Chief Complaint: Abd Pain Abdominal Pain/Flank Pain Onset: Today Context: Sudden Onset Timing: Continuous Quality: Stabbing Location: RUQ Worsened by: Movement (Sitting upright) Relieved by: Nothing Nausea/Vomiting/Emesis GI Symptom: Negative for Nausea or Vomiting Diarrhea/Melena/Hematochezia GI Symptom: Negative for Diarrhea, Melena or Hematochezia Associated Symptoms Associated Symptoms: Negative for Dysuria, Frequency or Hematuria Narrative Narrative: Patient presents with abdominal pain that began today. Patient states that the pain rather suddenly. Patient describes the pain as stabbing. Patient states her pain started approximately 1:10 PM today. Patient states her last meal was breakfast at 7 AM. Patient states she had a fried egg sandwich at that time. Patient states her pain is localized to the right upper abdomen. Patient states it is worse with movement and sitting. Patient denies any nausea vomiting or diarrhea. Patient denies any urinary complaints. Patient states her last menstrual period was approximately 2 weeks ago. [facility] Medical History (Updated 11/18/24 @ 16:[address] Orlando Rankin DO) Hypothyroidism Home Medications ?Medication ?Instructions ?Recorded ?Last Taken ?Type drospirenone 3 mg-ethinyl 1 ea PO DAILY 03/02/19 Unkno wn History estradiol 0.02 mg tablet (Gianvi (28)) levothyroxine 112 mcg tablet 112 mcg PO DAILY 03/02/19 Unknown History (Synthroid) buspirone 15 mg tablet 15 mg 11/18/24 Unknown Histo ry hydrocodone-acetaminophen 5-325mg 1 tab PO Q6H PRN PRN Pain 3 days 11/18/24 Unknown Rx 5mg-325mg #10 TABLETS ondansetron 4 mg disintegrating 4 mg PO Q8H PRN PRN Na usea #10 tabs 11/18/24 Unknown Rx tablet Allergy/AdvReac Type Severity Reaction Status Date / Time No Known Allergies Allergy Verified 03/02/19 05:23 Surgical History (Updated 11/18/24 @ 14:[address] Orlando Rankin DO) Hx of appendectomy Social History Smoking Status: Never smoker ROS ROS ED Constitutional Constitutional ED: Denies chills or fever(s) Eyes Eyes: Denies blurry vision or change in vision ENT ENT ED: Denies rhinorrhea or sore throat Cardiovascular Cardiovascular: Denies chest pain or palpitations Respiratory/Chest Respiratory/Chest: Denies cough or dyspnea Gastrointestinal Gastrointestinal: Reports abdominal pain; Denies nausea or vomiting Genitourinary Genitourinary ED: Denies dysuria or hematuria Musculoskeletal Musculoskeletal: Reports back pain; Denies neck pain Integumentary Denies abscess or rash Neurologic Neurologic: Denies headache(s) or weakness Allergic/Immunologic Allergic/Immunologic ED: Denies mouth swelling or urticaria EXAM Physical Exam Const Vital Signs: 11/18/24 14:13 Temperature 97.1 F L Temperature Source Temporal Pulse Rate 113 H Respiratory Rate 18 Blood Pressure 175/92 H Blood Pressure Mean 119 Pulse Ox 95 Oxygen Delivery Method Room Air Positive well nourished and well developed General Appearance ED: well developed and NAD HEENT Reports moist mucous membranes Neck supple and no JVD Resp normal respiratory effort and clear to auscultation bilaterally Cardio regular rate and regular rhythm GI non-distended Palpation: soft and tender RUQ; Negative for guarding or rebound tenderness present Neuro CN's II-XII intact bilaterally, moves all extremities and no sensory deficits noted Sensorium / Orientation: alert Motor Exam: strength 5/5 throughout Psych mental status grossly normal and thought process normal MDM MDM MDM Narrative Medical decision making narrative: Differential diagnosis includes cholecystitis, cholelithiasis, pancreatitis, pyelonephritis, colitis, peptic ulcer disease, duodenal ulcer, and viral illness. CBC will be obtained to assess for leukocytosis and anemia. Comprehensive metabolic profile will be obtained to assess for hepatic function, renal function, and electrolyte abnormality. Lipase will be obtained to assess for pancreatitis. Urinalysis will be obtained to assess for urinary tract infection and hematuria. Serum hCG will be obtained to assess for . Right upper quadrant ultrasound will be obtained to assess for cholecystitis and cholelithiasis. Lab Data Attestation: I reviewed the patient's lab results. Lab results narrative: CBC was reviewed and was within normal limits. Comprehensive metabolic profile was reviewed and was within normal limits. Lipase was reviewed and was normal. Serum hCG was reviewed and was negative. Urinalysis with reviewed. Leukocyte esterase was 500. There are 10-25 white blood cells but 10-25 squamous epithelial cells. There is 3+ bacteria. Labs: Laboratory Results - last 24 hr 11/18/24 11/18/24 14:50 15:11 WBC 5.6 RBC 4.29 Hgb 12.6 Hct 37.4 MCV 87.2 MCH 29.4 MCHC 33.7 RDW Std Deviation 39.3 RDW Coeff of [place] 12.3 Plt Count 324 MPV 8.9 Immature Gran % (Auto) 0.200 Neut % (Auto) 53.8 Lymph % (Auto) 33.5 [place] % (Auto) 11.3 H Eos % (Auto) 0.5 Baso % (Auto) 0.7 Absolute Neuts (auto) 3.0 Absolute Lymphs (auto) 1.89 Nucleated RBC % 0 Sodium 134 Potassium 3.4 Chloride Direct 101 Carbon Dioxide 20.3 L Anion Gap 13 BUN 15 Creatinine 0.79 Estim Creat Clear Calc 92.16 Est GFR (MDRD) Non-Af 100 BUN/Creatinine Ratio 18.6 Glucose 101 H Calcium 9.2 Total Bilirubin 0.26 AST 18 ALT 14 Alkaline Phosphatase 46 Total Protein 6.9 Albumin 4.2 Globulin 2.6 Albumin/Globulin Ratio 1.6 Lipase 32 Serum , Qual NEGATIVE Urine Color Yellow Urine Clarity Sl. Cloudy Urine pH 6.0 Ur Specific [place] 1.025 Urine Protein 15 H Urine Glucose (UA) Normal Urine Ketones 5 H Urine Occult Blood 25 H Urine Nitrite Negative Urine Bilirubin Negative Urine Urobilinogen Normal Ur Leukocyte Esterase 500 H Urine RBC 0-5 SEEN Urine WBC 10-25 SEEN Ur Squamous Epith Cells 10-25 SEEN Urine Bacteria 3+ Urine Mucus 0 SEEN Radiography Diagnostic Testing: Clinical Impression(s) from Imaging Studies Abdomen Ultrasound 11/18/24 14:53 IMPRESSION: Findings suggestive of a 1.1 cm x 1 cm x 0.8 cm hemangioma in the dome of the right lobe of the liver. No other abnormality is seen. Reading Location: [facility] Abdominal ultrasound was obtained. There is a 1.1 x 1 cm x 0.8 cm hemangioma of the dome of the right lobe of the liver. There is no evidence of cholecystitis or cholelithiasis. This was interpreted by the radiologist and was also independently reviewed by myself. Additional Tests and Interventions Additional Tests or Interventions: Urine culture was ordered. Treatment and Re-Evaluation :: Patient was given IV fluids, morphine, and Zofran. Patient was feeling somewhat better on reevaluation. Patient was advised of her findings. Patient was given prescriptions for a short course of [place] and Zofran. Patient was instructed to follow-up with her primary care physician in 5 to 7 days for further evaluation. Patient was advised that a urine culture was ordered and if there is a positive culture, she will be contacted and prescribed antibiotics at that time. Patient and spouse understood and were agreeable with plan. All questions were answered. Discharge Plan Triage Chief Complaint: Abd Pain ED Provider: Orlando Rankin Dx/Rx/DC Orders Clinical Impression: Right upper quadrant abdominal pain Instructions: ED Abdominal Pain Unkn Cause Fem Prescriptions: New hydrocodone-acetaminophen 5-325 mg tablet 1 tab PO Q6H PRN PRN (Reason: Pain) 3 Days Qty: 10 0RF ondansetron 4 mg tablet,disintegrating 4 mg PO Q8H PRN PRN (Reason: Nausea) Qty: 10 0RF No Action levothyroxine [Synthroid] 112 tablet 112 mcg PO DAILY drospirenone-ethinyl estradiol [Gianvi (28)] 1 EACH tablet 1 ea PO DAILY buspirone 15 mg tablet 15 mg Primary Care Provider: Orlando Fournier Referrals: Orlando Fournier MD [Primary Care Provider] - 5-7 Days Print Language: Kinyarwanda Disposition Disposition: Home, Self Care
--- NOTE | 2024-11-18 14:53 | US_ITS ---
PROCEDURE: ABDOMEN LIMITED REASON FOR EXAM: 1 day history of right upper quadrant pain. COMPARISON: None FINDINGS: Liver: Grossly normal size and echotexture. Findings suggestive of a 1.1 cm x 1 cm x 0.8 cm hemangioma in the dome of the right lobe of the liver. Gallbladder: No stones, sludge, wall thickening or tenderness. Common bile duct: Normal measuring it measures 2.9 mm.. Pancreas: Visualized portions are sonographically unremarkable. Visualized portions of the right kidney are unremarkable. No right upper quadrant ascites. US/Abdomen Limited IMPRESSION: Findings suggestive of a 1.1 cm x 1 cm x 0.8 cm hemangioma in the dome of the r ight lobe of the liver. No other abnormality is seen. Reading Location: [id number]
[2024-11-18] MEDS: 0.9% Normal Saline (1000mL) 1,000 ML 999 ML IV (15:02)
[2024-11-18 15:15] LABS: Mucous, Urine 0 SEEN /hpf (<or=2+)
[2024-11-18 15:23] LABS: Absolute Lymphocyte Count 1.89 X10^3/uL (0.83-4.51); Basophil# 0.04 X10^3/uL; Basophil% 0.7 % (0-1); Eosinophil# 0.03 X10^3/uL; Eosinophils% 0.5 % (0-5); Hematocrit 37.4 % (37-47); Hemoglobin 12.6 g/dL (12.0-15.0); Lymphocyte # 1.89 X10^3/ul (0.83-4.51); Lymphocyte % 33.5 % (19-41); Mean Corp Hgb Conc 33.7 g/dL (32-36); Mean Corpuscular Hgb 29.4 pg (27.0-32.0); Mean Corpuscular Volume 87.2 fL (81-99); Mean Platelet Vol. 8.9 fl (6.2-12.0); Monocyte# 0.64 X10^3/uL; Monocyte% 11.3 % (0-10); NRBC Flagged by Analyzer 0 % (0-5); Neutrophil # 3.03 X10^3/uL (2.7-7.7); Neutrophil % 53.8 % (47-70); Platelet Count 324 K/mm3 (150-450); RBC Distribution Width CV 12.3 % (11.6-14.6); RBC Distribution Width SD 39.3 fl (35.1-43.9); Red Blood Count 4.29 M/mm3 (4.2-5.4); White Blood Count 5.6 K/mm3 (4.4-11.0)
[2024-11-18 15:25] LABS: Internal QC Validated? YES +Cl - CLEAR BKGD; Pregnancy, Serum, hCG Quali. NEGATIVE Negative
[2024-11-18 15:27] LABS: ALB/GLOB Ratio 1.6 RATIO (0.9-2.4); AST(SGOT) 18 U/L (<=31); Alanine Aminotransfer ALT/SGPT 14 U/L (<=34); Albumin, Serum 4.2 g/dL (3.5-5.0); Alkaline Phosphatase 46 U/L (35-104); Anion Gap 13 (5-15); BUN 15 mg/dL (4-19); BUN/Creat Ratio 18.6 RATIO (10-20); Calcium 9.2 mg/dL (7.6-11.0); Carbon Dioxide 20.3 mmol/L (22.0-29.0); Chloride 101 mmol/L (96-108); Creatinine, Serum 0.79 mg/dL (0.70-1.20); EST Glomerular Filtration Rate 100 (>60); Estimated Creatinine Clearance 92.16 ml/min; Globulin 2.6 g/dL (2.2-4.2); Glucose 101 mg/dL (70-99); Lipase 32 U/L (13-75); Potassium 3.4 mmol/L (3.3-5.1); Protein, Total 6.9 g/dL (5.9-8.4); Sodium Level 134 mmol/L (133-145); Total Bilirubin 0.26 mg/dL (0.00-1.30)
[2024-11-18 15:33] LABS: Color, Urine Yellow (Yellow); Glucose, Dipstick Normal (Normal); Ketone-Dipstick 5 mg/dl (Negative); Leukocyte Esterase-Dipstick 500 /ul (Negative); Nitrite-Dipstick Negative (Negative); Occult Blood-Urine 25 /ul (Negative); Protein-Dipstick 15 mg/dl (Negative); Specific Gravity, Urine 1.025 (1.002-1.030); Urine Bilirubin Dipstick Negative (Negative); Urine Clarity Sl. Cloudy (Clear); Urine Urobilinogen Normal (Normal)
[2024-11-18 16:14] LABS: White Blood Cells 10-25 SEEN /hpf (0-5)
[2024-11-18 16:15] LABS: Bacteria 3+ /hpf (None Seen); Red Blood Cells-Urine 0-5 SEEN /hpf (0-5); Squamous Epithelial Cells - UA 10-25 SEEN /hpf (5-10)
[2024-11-18 16:51] VITALS: BP 133/74; PULSE 69; RESP 18; O2SAT 98
== END 2024-11-18 16:53 | disposition home or self-care (01) ==
PROVIDERS: Emergency Provider Emergency Medicine; PCP Family Medicine; Visit Provider Emergency Medicine
DX: R10.11 Right upper quadrant pain (principal); E03.9 Hypothyroidism, unspecified; Z79.890 Hormone replacement therapy; Z79.899 Other long term (current) drug therapy
CPT/HCPCS: 76705; 80053; 81001; 83690; 84703; 85025; 87086; 96361; 96374; 96375; 99283; J2405